=== PATIENT | female | born 1955 | race African-American/Black ===

== ENCOUNTER 2018-01-21 14:55 | Outpatient (CLI) | payer MEDICARE | END 2018-01-21 14:56 | disposition home or self-care (01) | LOC: BICRAD 14:55 | PROVIDERS: ATTEND Nurse Practitioner Acute Care | DX: C90.00 Multiple myeloma not having achieved remission (principal); R11.2 Nausea with vomiting, unspecified; D50.9 Iron deficiency anemia, unspecified ==

== ENCOUNTER 2018-03-02 15:18 | Emergency (ER) | payer MEDICARE ==
[2018-03-02 16:33] LABS: Hemoglobin 11.5 g/dL (12.0-16.0); Mean Platelet Volume 6.5 fL (7.4-10.4); Platelet Count 183 thou/uL (130-400); RBC Distribution Width 14.9 % (11.5-14.5); Red Blood Cell (RBC) Count 3.48 mill/uL (4.20-5.40); White Blood Cell (WBC) Count 3.3 thou/uL (4.8-10.8)
--- NOTE | 2018-03-02 16:45 | RAD ---
PORTABLE CHEST ONE VIEW 03/02/18 at 4:09 p.m. HISTORY: Cough, fever, sore throat. FINDINGS: Comparison is made with the exam of 07/22/11. The heart size is normal. The lungs are expanded without focal areas of consolidation, pneumothorax o r pleural effusions. IMPRESSION: No acute process. POS: [facility]
[2018-03-02 16:55] LABS: ALT (SGPT) 24 U/L (8-55); AST (SGOT) 30 U/L (5-34); Albumin 3.8 g/dL (3.4-4.8); Alkaline Phosphatase 81 U/L (40-150); Anion Gap 12 mmol/L (10-20); BUN (Urea Nitrogen) 12 mg/dL (9.8-20.1); Bilirubin, Total 0.5 mg/dL (0.2-1.2); Calc. Creatinine Clearance 0 mL/min (70-130); Calcium 8.9 mg/dL (7.8-10.44); Carbon Dioxide 28 mmol/L (23-31); Chloride 100 mmol/L (98-107); Estimated GFR-MDRD 62; Globulin 3.9 g/dL (2.4-3.5); Glucose 87 mg/dL (80-115); Potassium 3.9 mmol/L (3.5-5.1); Protein, Total 7.7 g/dL (6.0-8.3); Sodium 136 mmol/L (136-145)
[2018-03-02 17:02] LABS: Band 21 % (5-11); Eosinophils 2 % (0-10); Lymphocytes 34 % (21-51); MDiff Complete? YES; Metamyelocyte 1 % (0-0); Monocytes 3 % (0-10); Neutrophil 27 % (42-75); Ovalocytes SLIGHT = 2-5 cells (100X) (0-1/hpf); PLT Morphology Comment Appears Adequate; Polychromasia SLIGHT = 2-3 cells (100X) (0-2/hpf); Reactive Lymphocytes 11 % (0-10)
[2018-03-02] MEDS ORDERED: Acetaminophen 500 MG TAB ONE (17:21)
== END 2018-03-02 17:25 | disposition home or self-care (01) ==
LOC: ERS 15:18
DX: J11.1 Influenza due to unidentified influenza virus with other respiratory manifestations (principal); I10 Essential (primary) hypertension; F32.9 Major depressive disorder, single episode, unspecified; M19.90 Unspecified osteoarthritis, unspecified site; Z79.899 Other long term (current) drug therapy
CPT/HCPCS: 36415; 71045; 80053; 85025; 87081; 87430; 87804; 94760

== ENCOUNTER 2018-06-02 08:47 | Outpatient (CLI) | payer MEDICARE ==
[2018-06-02] MEDS ORDERED: Gadobenate Dimeglumine 529 MG/1 ML (20ML VIAL) ONE (09:00)
--- NOTE | 2018-06-02 15:48 | MRI ---
PRE AND POSTCONTRAST ENHANCED MRI IMAGES CERVICAL SPINE: 06/02/18 HISTORY: Patient with multiple myeloma, anemia, iron deficiency, neck pain. Multiplanar and multisequence pre and postcontrast enhanced MRI images cervical spine obtained. Image s demonstrate no evidence of marrow signal abnormalities to suggest interosseous involvement of the c ervical spine. The marrow signal is normal. Disc desiccation seen at multiple levels with broad based disc osteophyte complex at C3-4, C4-5, C5-6 and C6-7. There is also bilateral neural foraminal narro wing at these same levels due to uncovertebral osteophyte hypertrophy. No evidence of significant central disc protrusion seen to suggest significant cord compression. IMPRESSION: C3-4, C4-5, C5-6, and C6-7 central disc osteophyte complexes compressing the thecal sac without evide nce of significant cord compression. There is also bilateral neural foraminal narrowing at these lev els due to uncovertebral osteophyte hypertrophy. POS: [facility]
--- NOTE | 2018-06-02 15:53 | MRI ---
PRE AND POSTCONTRAST ENHANCED MRI IMAGES THORACIC SPINE 06/02/18 HISTORY: Anemia, D50.9 and C90.00 multiple myeloma. Multiplanar and multisequence pre and postcontrast enhanced MRI images thoracic spine demonstrate no definite evidence of spinal cord abnormalities. Disc desiccation with posterior osteophytes compatibl e with changes of spondylosis seen at T5-6, T6-7, T7-8, T8-9, T9-10 and T10-11 levels. There is some inferior end plate and superior end plate T10-11 Modic type I changes. No definite evidence of marrow signal abnormality seen to suggest myelomatous changes. IMPRESSION: Multilevel mid and lower thoracic spine changes of spondylosis with Modic type I changes at the T10-1 1 end plates. No evidence of obvious marrow signal abnormality seen to suggest involvement of the tho racic spine with multiple myeloma. POS: [facility]
--- NOTE | 2018-06-02 15:53 | MRI ---
MRI OF THE PELVIS WITH AND WITHOUT IV CONTRAST: Date: 06/02/18 INDICATION: History of multiple myeloma and anemia. COMPARISON: PET CT evaluation dated 05/13/16. FINDINGS: 20 mL of MultiHance was utilized for the examination. The uterus is surgically absent. No lymphadenopathy or free fluid is evident within the pelvis. No acute fracture is evident. No suspi cious marrow signal abnormality or region of abnormal enhancement is demonstrated to suggest marrow i nfiltrative process. There are scattered degenerative changes involving the lower lumbar spine. Some mild edema overlying the greater trochanter can be seen with mild trochanteric bursitis. No muscular atrophy is grossly evident. IMPRESSION: 1. No definite marrow infiltrative process to suggest active myelomatous lesion within the pelvis or proximal femurs. 2. Mild degenerative changes of the lower lumbar spine. 3. Hysterectomy. POS: [facility]
--- NOTE | 2018-06-02 15:58 | MRI ---
PRE AND POST CONTRAST ENHANCED MRI IMAGES LUMBAR SPINE: History: Patient with anemia, multiple myeloma. D50.9, C90.00 Technique: Multiplanar, multisequence pre and post contrast enhanced MRI images were obtained of the lumbar spine. FINDINGS: The marrow signal is unremarkable without evidence of obvious signal changes to suggest involvement o f the marrow with multiple myeloma. L1-2, L2-3: Unremarkable. L3-4: Disc desiccation is seen. There is a broad based disc bulge compressing the thecal sac. Bilater al facet and ligamentum flavum hypertrophy is seen. This results in a moderate degree of central and lateral recess stenosis. The right neural foramen is patent. There is moderate left sided neural fora gutierrez narrowing seen. L4-5: Disc desiccation is seen. There is a broad based disc bulge with bilateral facet and ligamentum flavum hypertrophy resulting in a moderate degree of central and lateral recess stenosis. Mild bilat eral neural foraminal narrowing is seen due to facet hypertrophy. L5-S1: Disc desiccation is seen. There is a broad based disc bulge with bilateral facet hypertrophy. This results in mild central and lateral recess stenosis. The neural foramen demonstrate moderate cresencio rowing due to the central and foraminal disc protrusion as well as the bilateral facet hypertrophy. IMPRESSION: 1. L3-4, L4-5, L5-S1 disc desiccation and broad based POS: [facility]
== END 2018-06-02 08:48 | disposition home or self-care (01) ==
LOC: SCSMRI 08:47
PROVIDERS: ATTEND Internal Medicine Medical Oncology
DX: C90.00 Multiple myeloma not having achieved remission (principal); M51.87 Other intervertebral disc disorders, lumbosacral region; M51.86 Other intervertebral disc disorders, lumbar region; M47.896 Other spondylosis, lumbar region; Z90.710 Acquired absence of both cervix and uterus; M47.894 Other spondylosis, thoracic region; M99.82 Other biomechanical lesions of thoracic region; M25.78 Osteophyte, vertebrae
CPT/HCPCS: 72156; 72157; 72158; 72197; A9579

== ENCOUNTER 2018-12-23 13:52 | Outpatient (CLI) | payer MEDICARE ==
--- NOTE | 2018-12-23 15:37 | RAD ---
CHEST TWO VIEWS: History: Cough. Comparison: 05-28-17 FINDINGS: Cardiac silhouette and pulmonary vasculature are unremarkable. Mediastinum is midline. No confluent a irspace consolidation, pneumothorax or pleural fluid. IMPRESSION: No active cardiopulmonary abnormalities are demonstrated. POS: [facility]
== END 2018-12-23 13:53 | disposition home or self-care (01) ==
LOC: RAD 13:52
PROVIDERS: ATTEND Family Medicine
DX: R05 Cough (principal)
CPT/HCPCS: 71046

== ENCOUNTER 2019-02-17 10:36 | Outpatient (CLI) | payer MEDICARE ==
--- NOTE | 2019-02-18 11:36 | PET ---
"PRELIMINARY REPORT" EXAM: PET/CT HISTORY: 62-year-old female with multiple myeloma. Exam requested for response evaluation. TECHNIQUE: PET scan with CT attenuation correction was performed from the vertex through the feet following the intravenous administration of 12 mCi F-18 fluorodeoxyglucose. COMPARISON: 05/13/2016. FINDINGS: No abnormal areas of tracer localization are identified in the skeleton. The previously noted foci of abnormally increased tracer localization in the skeleton have resolved in the interim. No balbina hypermetabolism is seen in the neck, chest, axillae, abdomen and pelvis, inguinal, or hyperm etabolic pulmonary nodules, liver, adrenal or pancreatic lesions are seen. There is physiologic activity in the brain, heart, GI and tracts. The CT scan used for attenuation correction demonstrates no evidence of pleural effusions or ascites. IMPRESSION: No evidence of active myelomatous disease or metastatic disease. Transcribed Date/Time: 02/18/2019 11:44 AM
== END 2019-02-17 10:37 | disposition home or self-care (01) ==
LOC: PET 10:36
PROVIDERS: ATTEND Internal Medicine Medical Oncology
DX: C90.00 Multiple myeloma not having achieved remission (principal)
CPT/HCPCS: 78816; A9552

== ENCOUNTER 2019-03-25 14:57 | Outpatient (CLI) | payer MEDICARE ==
--- NOTE | 2019-03-25 15:50 | MMO ---
Bilateral MAMMO Bilat Screen [facility]. CLINICAL HISTORY: Patient is 63 years old and is seen for screening. The patient has the following family history of breast cancer: maternal grandmother. The patient has a history of other cancer in 2009. VIEWS: The views performed were: bilateral craniocaudal with tomosynthesis and bilateral mediolateral oblique with tomosynthesis. FILMS COMPARED: The present examination has been compared to prior imaging studies performed at [facility] on 01/30/2011 and 05/07/2012, and at [facility] on 01/19/2015, 01/24/2016 and 06/25/2017. MAMMOGRAM FINDINGS: There are scattered fibroglandular densities. There are no suspicious masses, suspicious calcifications, or new areas of architectural distortion. IMPRESSION: THERE IS NO MAMMOGRAPHIC EVIDENCE OF MALIGNANCY. A ROUTINE FOLLOW-UP MAMMOGRAM IN 1 YEAR IS RECOMMENDED. THE RESULTS OF THIS EXAM WERE SENT TO THE PATIENT. ACR BI-RADS Category 1 - Negative MAMMOGRAPHY NOTE: 1. A negative mammogram report should not delay a biopsy if a dominant of clinically suspicious mass is present. 2. Approximately 10% to 15% of breast cancers are not detected by mammography. 3. Adenosis and dense breasts may obscure an underlying neoplasm.
== END 2019-03-25 14:58 | disposition home or self-care (01) ==
LOC: BICMAMMO 14:57
PROVIDERS: ATTEND Family Medicine
DX: Z12.31 Encounter for screening mammogram for malignant neoplasm of breast (principal)
CPT/HCPCS: 77063; 77067

== ENCOUNTER 2020-09-14 14:34 | Outpatient (CLI) | payer MEDICARE ==
--- NOTE | 2020-09-14 16:12 | MRI ---
Exam: Thoracic spine MRI without contrast HISTORY: Spondylosis with radiculopathy. Past medical history of multiple myeloma. COMPARISON: 06/02/2018 FINDINGS: Appropriate T1 marrow signal intensity thoracic vertebrae. Thoracic spine vertebral body height is ma intained. No fracture. There are type II Modic changes at multiple levels. No significant STIR hyperintensity suggest vertebral body edema or ligamentous injury. Appropriate signal intensity of the visualized paraspinal muscles, solid organs, lung parenchyma and mediastinum The thoracic cord has a normal size and signal intensity. No cord malacia. No cord expansion. No abno rmal T2 signal intensity in the thoracic cord. Conus medullaris terminates at the T12-L1 disc space. Throughout the thoracic spine, neural foramina are patent, with the exception of the T10-T11 level. T here is moderate to severe right neural foraminal narrowing. Moderate right neural foramina at T9-T10. There is multilevel disc desiccation throughout the thoracic spine T5-T6: Disc desiccation with moderate loss of disc space height. Minimal left and right paracentral d isc bulges. No significant central canal stenosis T6-T7: Disc desiccation with small left and right paracentral disc herniation. Mild central canal jailene nosis T7-T8: Disc desiccation with severe loss of disc space height. Left and right paracentral disc hernia tions. Mild central canal stenosis T8-T9: Disc desiccation with severe loss of disc space height. Broad-based disc bulge abuts the theca l sac. Mild central canal stenosis T9-T10: Disc desiccation with mild loss of disc space height. Broad-based disc bulge abuts the thecal sac. Mild central canal stenosis T10 T10-T11: Broad-based disc bulge. Mild central canal stenosis IMPRESSION: Redemonstration of multilevel degenerative changes of the thoracic spine. Transcribed Date/Time: 09/14/2020 4:21 PM
== END 2020-09-14 14:35 | disposition home or self-care (01) ==
LOC: BICMRI 14:34
PROVIDERS: ATTEND Nurse Practitioner Family
DX: M47.24 Other spondylosis with radiculopathy, thoracic region (principal)
CPT/HCPCS: 72146

== ENCOUNTER 2021-04-04 11:19 | Outpatient (CLI) | payer MEDICARE | END 2021-04-04 11:20 | disposition home or self-care (01) | LOC: PET 11:19 | PROVIDERS: ATTEND Internal Medicine Medical Oncology | DX: C90.00 Multiple myeloma not having achieved remission (principal) | CPT/HCPCS: 78815; A9552 ==

== ENCOUNTER 2021-04-24 12:58 | Outpatient (CLI) | payer MEDICARE | END 2021-04-24 12:59 | disposition home or self-care (01) | LOC: BICMAMMO 12:58 | PROVIDERS: ATTEND Family Medicine | DX: Z12.31 Encounter for screening mammogram for malignant neoplasm of breast (principal) | CPT/HCPCS: 77063; 77067 ==

== ENCOUNTER 2021-05-19 15:33 | Emergency (ER) | payer MEDICARE ==
[2021-05-19 17:21] LABS: Hemoglobin 11.6 g/dL (12.0-16.0); Mean Corpuscular HGB CONC 32.7 g/dL (32.0-36.0); Mean Corpuscular Hemoglobin 33.4 pg (27.0-31.0); Mean Platelet Volume 7.5 fL (7.4-10.4); Platelet Count 109 thou/uL (130-400); RBC Distribution Width 13.2 % (11.5-14.5); Red Blood Cell (RBC) Count 3.49 mill/uL (4.20-5.40)
[2021-05-19 17:34] LABS: Band 2 % (5-11); Eosinophils 9 % (0-10); Lymphocytes 55 % (21-51); MDiff Complete? YES; Macrocytosis SLIGHT = 6-15 cells (100X) (0-5/hpf); Monocytes 8 % (0-10); Neutrophil 26 % (42-75); Platelet Morphology Comment Appears Decreased; Polychromasia SLIGHT = 2-3 cells (100X) (0-2/hpf)
[2021-05-19 17:40] LABS: ALT (SGPT) 37 U/L (8-55); AST (SGOT) 42 U/L (5-34); Alkaline Phosphatase 55 U/L (40-110); Anion Gap 13 mmol/L (10-20); BUN (Urea Nitrogen) 16 mg/dL (9.8-20.1); Bilirubin, Total 0.6 mg/dL (0.2-1.2); Calc. Creatinine Clearance 0 mL/min (70-130); Calcium 9.7 mg/dL (7.8-10.44); Carbon Dioxide 28 mmol/L (23-31); Chloride 104 mmol/L (98-107); Globulin 4.2 g/dL (2.4-3.5); Glucose 94 mg/dL (80-115); Potassium 3.7 mmol/L (3.5-5.1); Protein, Total 8.2 g/dL (5.8-8.1); Sodium 141 mmol/L (136-145)
[2021-05-19 17:54] LABS: Bilirubin Negative (Negative); Blood, Urine Negative (Negative); Clarity Clear (Clear); Glucose, Urine (Dipstick) Normal (Negative); Ketone, Urine Negative (Negative); Leukocyte 250 Leu/uL (Negative); Nitrite Negative (Negative); Protein, Urine (Dipstick) Negative (Neg-Trace); RBC/HPF 0-3 HPF (0-3); Specific Gravity, Urine 1.015 (1.002-1.036); Squamous Epithelial 0-3 HPF (0-3); Urobilinogen Normal mg/dL (Less than 2); pH, Urine 5.5 (5.0-9.0)
[2021-05-19 17:56] LABS: Bacteria/HPF Rare-Few HPF (None Seen)
== END 2021-05-19 19:42 | disposition home or self-care (01) ==
LOC: ERS 15:33
DX: R53.0 Neoplastic (malignant) related fatigue (principal); C90.00 Multiple myeloma not having achieved remission; R74.8 Abnormal levels of other serum enzymes; D69.6 Thrombocytopenia, unspecified; D72.819 Decreased white blood cell count, unspecified; N39.0 Urinary tract infection, site not specified; I10 Essential (primary) hypertension; M19.90 Unspecified osteoarthritis, unspecified site; Z87.891 Personal history of nicotine dependence; Z79.899 Other long term (current) drug therapy
CPT/HCPCS: 36415; 71045; 80053; 81003; 81015; 82140; 82550; 84443; 84484; 85025

== ENCOUNTER 2021-08-12 10:19 | Outpatient (CLI) | payer MEDICARE ==
[2021-08-12 22:33] LABS: SARS-CoV-2 PCR by NAA Not Detected (NotDetected)
== END 2021-08-12 10:20 | disposition home or self-care (01) ==
LOC: LABBT 10:19
PROVIDERS: ATTEND Physician Assistant Medical
DX: Z01.812 Encounter for preprocedural laboratory examination (principal); Z20.822 Contact with and (suspected) exposure to COVID-19
CPT/HCPCS: U0003; U0005

== ENCOUNTER 2021-08-15 08:21 | Day surgery (SDC) | payer MEDICARE ==
[2021-08-14 14:04] VITALS: BMI 34.4
[2021-08-15 08:25] LABS: Hemoglobin 12.4 g/dL (12.0-16.0); Mean Corpuscular HGB CONC 32.7 g/dL (32.0-36.0); Mean Corpuscular Hemoglobin 33.7 pg (27.0-31.0); Platelet Count 149 thou/uL (130-400); RBC Distribution Width 13.2 % (11.5-14.5); Red Blood Cell (RBC) Count 3.69 mill/uL (4.20-5.40); White Blood Cell (WBC) Count 3.5 thou/uL (4.8-10.8)
[2021-08-15 08:31] LABS: PTT 23.9 sec (22.9-36.1); Prothrombin Time 12.8 sec (12.0-14.7)
[2021-08-15] MEDS ORDERED: Fentanyl 100 MCG/2 ML VIAL ONE (09:25)
[2021-08-15] MEDS ORDERED: Midazolam HCl 2 mg/2 ml Vial ONE (09:26)
[2021-08-15] MEDS ORDERED: Sodium Bicarbonate 2.5 MEQ/5 ML VIAL ONE (09:26)
[2021-08-15] MEDS ORDERED: Lidocaine 1% PF 5 ML VIAL ONE (09:26)
[2021-08-15] MEDS ORDERED: Midazolam HCl 2 mg/2 ml Vial IVP PRN (09:35)
[2021-08-15] MEDS ORDERED: Fentanyl 100 MCG/2 ML VIAL SLOW IVP PRN (09:35)
[2021-08-15] MEDS ORDERED: Sodium Chloride 0.9% 1,000 ML IV SCH (09:45)
[2021-08-15 10:11] LABS: Band 2 % (5-11); Eosinophils 4 % (0-10); Lymphocytes 53 % (21-51); MDiff Complete? YES; Macrocytosis SLIGHT = 6-15 cells (100X) (0-5/hpf); Monocytes 13 % (0-10); Neutrophil 28 % (42-75); Platelet Morphology Comment Appears Adequate; Polychromasia SLIGHT = 2-3 cells (100X) (0-2/hpf)
[2021-08-15 14:24] VITALS: BP 110/58; TEMP 98.1
== END 2021-08-15 12:38 | disposition home or self-care (01) ==
LOC: ULT 08:21
PROVIDERS: ATTEND Physician Assistant Medical
PROC: 0FB23ZX Excision of Left Lobe Liver, Percutaneous Approach, Diagnostic (ICD-10-PCS; principal; 2021-08-15)
DX: K75.81 Nonalcoholic steatohepatitis (NASH) (principal); I10 Essential (primary) hypertension; G47.30 Sleep apnea, unspecified; K21.9 Gastro-esophageal reflux disease without esophagitis; M19.90 Unspecified osteoarthritis, unspecified site; Z79.82 Long term (current) use of aspirin; Z79.1 Long term (current) use of non-steroidal anti-inflammatories (NSAID); Z79.899 Other long term (current) drug therapy; Z87.891 Personal history of nicotine dependence
CPT/HCPCS: 47000; 76942; 85025; 85610; 85730; 88307; 88313; J2250; J3010

== ENCOUNTER 2022-05-23 09:30 | Outpatient (CLI) | payer MEDICARE | END 2022-05-23 09:31 | disposition home or self-care (01) | LOC: PET 09:30 | PROVIDERS: ATTEND Internal Medicine Medical Oncology | DX: C90.00 Multiple myeloma not having achieved remission (principal); C79.51 Secondary malignant neoplasm of bone; D50.9 Iron deficiency anemia, unspecified; R11.2 Nausea with vomiting, unspecified | CPT/HCPCS: 78815; A9552 ==

== ENCOUNTER 2022-12-19 11:16 | Outpatient (CLI) | payer MEDICARE | END 2022-12-19 11:17 | disposition home or self-care (01) | LOC: BICMAMMO 11:16 | PROVIDERS: ATTEND Family Medicine | DX: Z12.31 Encounter for screening mammogram for malignant neoplasm of breast (principal); Z80.3 Family history of malignant neoplasm of breast; Z85.89 Personal history of malignant neoplasm of other organs and systems | CPT/HCPCS: 77063; 77067 ==

== ENCOUNTER 2023-06-02 11:02 | Outpatient (CLI) | payer MEDICARE | END 2023-06-02 11:03 | disposition home or self-care (01) | LOC: RAD 11:02 | PROVIDERS: ATTEND Nurse Practitioner Family | DX: M79.604 Pain in right leg (principal); M25.561 Pain in right knee; M17.11 Unilateral primary osteoarthritis, right knee ==

== ENCOUNTER 2024-09-13 14:04 | Outpatient (CLI) | payer MEDICARE | END 2024-09-13 14:05 | disposition home or self-care (01) | LOC: BICRAD 14:04 | PROVIDERS: ATTEND Family Medicine | DX: J22 Unspecified acute lower respiratory infection (principal) | CPT/HCPCS: 71046 ==

== ENCOUNTER 2024-09-16 08:24 | Outpatient (CLI) | payer MEDICARE | END 2024-09-16 08:25 | disposition home or self-care (01) | LOC: CT 08:24 | PROVIDERS: ATTEND Family Medicine | DX: R06.02 Shortness of breath (principal); J18.9 Pneumonia, unspecified organism; J40 Bronchitis, not specified as acute or chronic | CPT/HCPCS: 36415; 71270; 82565 ==

== ENCOUNTER 2025-07-10 09:30 | Outpatient (CLI) | payer MEDICARE | END 2025-07-10 09:31 | disposition home or self-care (01) | LOC: PET 09:30 | PROVIDERS: ATTEND Internal Medicine | DX: E27.9 Disorder of adrenal gland, unspecified (principal); D50.9 Iron deficiency anemia, unspecified; C90.00 Multiple myeloma not having achieved remission; R11.2 Nausea with vomiting, unspecified; C79.51 Secondary malignant neoplasm of bone; C80.1 Malignant (primary) neoplasm, unspecified | CPT/HCPCS: 78815; A9552 ==

== ENCOUNTER 2025-08-04 22:20 | Emergency (ER) | payer MEDICARE ==
[2025-08-04 23:30] LABS: #Basophils 0.04 10x3/uL (0.0-0.2); #Eosinophils 0.11 10x3/uL (0.0-0.7); #Monocytes 0.38 10x3/uL (0.11-0.59); #Neutrophils 1.20 10x3/uL (1.40-6.50); %Basophils 1.1 % (0.0-1.0); %Eosinophils 3.0 % (0.0-10.0); %Lymphocytes 52.2 % (21.0-51.0); %Monocytes 10.5 % (0.0-10.0); %Neutrophils 33.2 % (42.0-75.0); Hematocrit 34.2 % (36.0-47.0); Hemoglobin 10.9 g/dL (12.0-16.0); Mean Corpuscular Hemoglobin 31.9 pg (27.0-31.0); Mean Corpuscular Volume 100.0 fL (78.0-98.0); Platelet Count 142 10x3/uL (130-400); Red Blood Cell (RBC) Count 3.42 mill/uL (4.20-5.40); White Blood Cell (WBC) Count 3.62 10x3/uL (4.8-10.8)
[2025-08-04 23:55] LABS: ALT (SGPT) 24 U/L (Less than 34); AST (SGOT) 35 U/L (11-34); Albumin 3.7 g/dL (3.1-4.5); Alkaline Phosphatase 62 U/L (40-110); Anion Gap 14 mmol/L (10-20); BUN (Urea Nitrogen) 18 mg/dL (9.8-20.1); Bilirubin, Total 0.4 mg/dL (0.3-1.2); Calc. Creatinine Clearance 0 mL/min (70-130); Calcium 9.1 mg/dL (7.8-10.44); Carbon Dioxide 21 mmol/L (23-31); Chloride 104 mmol/L (98-107); Globulin 3.8 g/dL (2.4-3.5); Glucose 63 mg/dL (80-115); Potassium 4.7 mmol/L (3.5-5.1); Sodium 134 mmol/L (136-145)
== END 2025-08-05 01:50 | disposition home or self-care (01) ==
LOC: ERS 22:20
DX: R60.0 Localized edema (principal); I11.0 Hypertensive heart disease with heart failure; I50.9 Heart failure, unspecified; F17.290 Nicotine dependence, other tobacco product, uncomplicated; Z86.711 Personal history of pulmonary embolism; Z86.718 Personal history of other venous thrombosis and embolism; Z79.01 Long term (current) use of anticoagulants
CPT/HCPCS: 36415; 71045; 80053; 83880; 84484; 85025; 93005; 93970

== ENCOUNTER 2025-09-20 11:28 | Outpatient (CLI) | payer MEDICARE | END 2025-09-20 11:29 | disposition home or self-care (01) | LOC: RAD 11:28 | PROVIDERS: ATTEND Internal Medicine | DX: R06.00 Dyspnea, unspecified (principal) | CPT/HCPCS: 71046 ==

== ENCOUNTER 2025-10-03 16:05 | Emergency (ER) | payer MEDICARE ==
[2025-10-03] MEDS ORDERED: Acetaminophen 500 MG TAB ONE (18:10)
== END 2025-10-03 19:24 ==
LOC: ERS 16:05
DX: S09.90XA Unspecified injury of head, initial encounter (principal); S50.02XA Contusion of left elbow, initial encounter; S30.0XXA Contusion of lower back and pelvis, initial encounter; I11.0 Hypertensive heart disease with heart failure; I50.9 Heart failure, unspecified; W01.198A Fall on same level from slipping, tripping and stumbling with subsequent striking against other object, initial encounter; Z55.6 Problems related to health literacy; Z79.82 Long term (current) use of aspirin; Z79.899 Other long term (current) drug therapy
CPT/HCPCS: 70450; 71045; 72125; 72170; 72192

== ENCOUNTER 2025-10-18 15:26 | Outpatient (CLI) | payer MEDICARE | END 2025-10-18 15:27 | disposition home or self-care (01) | LOC: BICRAD 15:26 | PROVIDERS: ATTEND Nurse Practitioner Family | DX: R09.89 Other specified symptoms and signs involving the circulatory and respiratory systems (principal) | CPT/HCPCS: 71046 ==